=== PATIENT | female | born 1955 | race African-American/Black ===

== ENCOUNTER 2021-09-08 21:35 | Inpatient (IN) | payer MEDICAID, OTHER ==
[~2021-09-08] VITALS: Ht 170.2 cm; Wt 69.1 kg
[2021-09-08 23:24] LABS: Mean Corpuscular Volume 80.7 fL (80.0-100.0)
[2021-09-08 23:26] LABS: Albumin 1.4 g/dL (3.4-5.0); Anion Gap 10 (5-15); Blood Urea Nitrogen 13 mg/dL (7-18); Calcium 8.4 mg/dL (8.5-10.1); Carbon Dioxide 24 mmol/L (21-32); Chloride 92 mmol/L (98-107); Glucose 233 mg/dL (74-106); Hemoglobin 9.5 g/dL (12.2-16.2); Magnesium 1.9 mg/dL (1.6-2.6); Mean Corpuscular Hemoglobin 26.4 pg (28.0-32.0); Mean Corpuscular Hgb Conc. 32.8 g/dL (32.0-36.0); Potassium 3.7 mmol/L (3.5-5.1); Red Blood Cells 3.59 10^6/uL (4.0-5.20); Sodium 126 mmol/L (136-145); White Blood Cell 18.4 10^3/uL (4.4-10.8)
[2021-09-08 23:28] LABS: Red Cell Distribution Width 20.6 % (11.8-14.3)
[2021-09-08 23:29] LABS: Basophils % (manual) 0 (0.0-2.0); Blast Cells 0; Eosinophils % (manual) 0 (0-7); Metamyelocytes % 0; Myelocytes % 0; Promyelocytes % 0; Reactive Lymphocytes 0
[2021-09-08 23:35] LABS: Alanine Aminotransferase 33 U/L (13-56); Alkaline Phosphatase 487 U/L (45-117); Aspartate Aminotransferase 80 U/L (15-37); BUN/Creatinine Ratio 19.7; Bilirubin, Total 8.3 mg/dL (0.2-1.0); Creatine Kinase IFCC 47 U/L (26-192); GFR African American 116 mL/min; GFR Non-African American 96 mL/min; Total Protein 8.3 g/dL (6.4-8.2)
[2021-09-08 23:40] LABS: CRP High Sensitivity > 19 mg/dL (< 0.3)
[2021-09-09 00:08] LABS: Band Neutrophils % (manual) 4; Lymphocytes % (manual) 7 (10.0-50.0); Monocytes % (manual) 8 (0-12)
[2021-09-09] MEDS ORDERED: SODIUM CHLORIDE 0.9% 1,000 ML IV ONE (00:15)
[2021-09-09] MEDS ORDERED: PIPERACILLIN-TAZOB 3.375GM 100 ML IV ONE (00:15)
[2021-09-09] MEDS ORDERED: MORPHINE SULFATE INJ 2 MG/ml SYRG IV PRN ×2 (01:00→13:45)
[2021-09-09] MEDS ORDERED: DOCUSATE SOD 100 MG CAP PO PRN (01:00)
[2021-09-09] MEDS ORDERED: LORazepam 0.5 MG TAB PO PRN (01:00)
[2021-09-09] MEDS ORDERED: DEXTROSE (50%) 50ML SYRG IV PRN (01:00)
[2021-09-09] MEDS ORDERED: TEMAZEPAM 15 MG CAP PO PRN (01:00)
[2021-09-09] MEDS ORDERED: ACETAMINOPHEN 325 MG TAB PO PRN (01:00)
[2021-09-09] MEDS ORDERED: ONDANSETRON HCL 4 MG/2 ML VIAL IV PRN (01:00)
[2021-09-09 01:53] LABS: Triglycerides 250 mg/dL (< 150)
[2021-09-09 01:57] LABS: HDL Cholesterol 9 mg/dL (40-59); LDL Cholesterol 265 mg/dL (< 100)
[2021-09-09 02:18] LABS: Cholesterol 288 mg/dL (< 200)
[2021-09-09] MEDS: SODIUM CHLORIDE 0.9% 1,000 ML IV SCH ×2 (03:11→17:40)
[2021-09-09] MEDS: ACCU-CHEK COMFORT CURVE STRIP VI SCH ×6 (04:14→23:57)
[2021-09-09] MEDS: InsuLIN REG 1unit/0.01ml Soln (100units/ml) SC SCH ×6 (04:14→23:57)
[2021-09-09] MEDS: HYDROcodone-ACET 5/325MG TAB PO PRN ×2 (04:15→21:38)
[2021-09-09 04:30] LABS: Urine Bacteria FEW /hpf (None Seen); Urine Blood Negative /uL (Negative); Urine Mucus FEW (None Seen); Urine Specific Gravity 1.018 (1.001-1.035); Urine WBC 20 /hpf (0 - 5)
[2021-09-09] MEDS: PIPERACILLIN-TAZOB 3.375GM 100 ML IV SCH ×3 (06:14→21:31)
[2021-09-09 10:20] LABS: Potassium 3.8 mmol/L (3.5-5.1)
[2021-09-09 10:28] LABS: Albumin 1.3 g/dL (3.4-5.0); BUN/Creatinine Ratio 15.9; Bilirubin, Total 8.5 mg/dL (0.2-1.0); Total Protein 8.2 g/dL (6.4-8.2)
[2021-09-09 10:50] LABS: Hematocrit 28.6 % (36.0-46.0); Hemoglobin 8.9 g/dL (12.2-16.2); Mean Corpuscular Hgb Conc. 31.2 g/dL (32.0-36.0); Mean Corpuscular Volume 83.2 fL (80.0-100.0); Red Blood Cells 3.44 10^6/uL (4.0-5.20); White Blood Cell 15.1 10^3/uL (4.4-10.8)
[2021-09-09 11:22] LABS: Basophils % (manual) 0 (0.0-2.0); Blast Cells 0; Eosinophils % (manual) 0 (0-7); Metamyelocytes % 0; Myelocytes % 0; Promyelocytes % 0; Reactive Lymphocytes 0
[2021-09-09 13:14] VITALS: BP 111/79
[2021-09-09 13:34] LABS: Band Neutrophils % (manual) 1; Lymphocytes % (manual) 7 (10.0-50.0); Monocytes % (manual) 18 (0-12)
[2021-09-09 15:40] LABS: HDL Cholesterol 9 mg/dL (40-59); LDL Cholesterol 278 mg/dL (< 100); Triglycerides 259 mg/dL (< 150)
[2021-09-09 16:00] VITALS: BP 111/69
[2021-09-09 16:39] LABS: Cholesterol 254 mg/dL (< 200)
[2021-09-09] MEDS: FAMOTIDINE 20 MG TAB PO SCH (21:31)
[2021-09-09] MEDS: SENNA 8.6 MG TAB PO SCH (21:31)
[2021-09-09 22:00] VITALS: BP 115/77
[2021-09-10] MEDS: HYDROcodone-ACET 5/325MG TAB PO PRN ×4 (02:51→21:43)
[2021-09-10] MEDS: ACCU-CHEK COMFORT CURVE STRIP VI SCH ×5 (04:25→21:00)
[2021-09-10] MEDS: InsuLIN REG 1unit/0.01ml Soln (100units/ml) SC SCH ×5 (04:28→21:26)
[2021-09-10 05:05] VITALS: BP 96/56
[2021-09-10] MEDS: PIPERACILLIN-TAZOB 3.375GM 100 ML IV SCH ×3 (05:38→21:35)
[2021-09-10 07:10] LABS: Hemoglobin 8.3 g/dL (12.2-16.2)
[2021-09-10 07:12] LABS: Hematocrit 25.6 % (36.0-46.0); Mean Corpuscular Hemoglobin 26.3 pg (28.0-32.0); Mean Corpuscular Hgb Conc. 32.6 g/dL (32.0-36.0); Mean Corpuscular Volume 80.7 fL (80.0-100.0); Red Blood Cells 3.17 10^6/uL (4.0-5.20); White Blood Cell 15.3 10^3/uL (4.4-10.8)
[2021-09-10 07:21] LABS: Albumin 1.2 g/dL (3.4-5.0); Calcium 7.7 mg/dL (8.5-10.1); Potassium 3.1 mmol/L (3.5-5.1)
[2021-09-10 07:27] LABS: Bilirubin, Total 7.6 mg/dL (0.2-1.0); Total Protein 7.3 g/dL (6.4-8.2)
[2021-09-10 07:46] LABS: Red Cell Distribution Width 20.8 % (11.8-14.3)
[2021-09-10 07:47] LABS: Band Neutrophils % (manual) 0; Basophils % (manual) 0 (0.0-2.0); Blast Cells 0; Eosinophils % (manual) 0 (0-7); Metamyelocytes % 0; Myelocytes % 0; Promyelocytes % 0; Reactive Lymphocytes 0
[2021-09-10 08:00] VITALS: BP 113/72
[2021-09-10 08:19] LABS: Lymphocytes % (manual) 6 (10.0-50.0); Monocytes % (manual) 9 (0-12)
[2021-09-10 09:00] VITALS: BP 113/72
[2021-09-10] MEDS: FAMOTIDINE 20 MG TAB PO SCH (09:09)
[2021-09-10] MEDS: SODIUM CHLORIDE 0.9% 1,000 ML IV SCH (09:10)
[2021-09-10] MEDS ORDERED: ENOXAPARIN SOD 40 MG/0.4 ML SYRINGE SC SCH (10:00)
[2021-09-10] MEDS ORDERED: PANTOPRAZOLE 40 MG/10 ML VIAL INJ IV ONE (11:00)
[2021-09-10] MEDS ORDERED: POTASSIUM EFFERVESENT TAB 25 MEQ GT ONE (11:00)
[2021-09-10 13:00] VITALS: BP 109/73
[2021-09-10 17:00] VITALS: BP 129/69
[2021-09-10] MEDS: PANTOPRAZOLE 40 MG/10 ML VIAL INJ IV SCH (21:34)
[2021-09-10] MEDS: SENNA 8.6 MG TAB PO SCH (21:35)
[2021-09-10 22:19] VITALS: BP 94/56
[2021-09-10 23:45] LABS: Urine Bacteria NONE SEEN /hpf (None Seen); Urine Blood Negative /uL (Negative); Urine Specific Gravity 1.011 (1.001-1.035); Urine WBC 6 /hpf (0 - 5)
[2021-09-11] MEDS: ACCU-CHEK COMFORT CURVE STRIP VI SCH ×7 (00:10→23:51)
[2021-09-11] MEDS: InsuLIN REG 1unit/0.01ml Soln (100units/ml) SC SCH ×7 (00:17→23:53)
[2021-09-11] MEDS: HYDROcodone-ACET 5/325MG TAB PO PRN ×3 (04:57→21:11)
[2021-09-11] MEDS: PIPERACILLIN-TAZOB 3.375GM 100 ML IV SCH ×3 (05:35→21:11)
[2021-09-11 06:10] LABS: Calcium 8.4 mg/dL (8.5-10.1); Potassium 4.2 mmol/L (3.5-5.1)
[2021-09-11 06:11] LABS: Mean Corpuscular Hgb Conc. 33.1 g/dL (32.0-36.0)
[2021-09-11 06:13] LABS: Hematocrit 26.1 % (36.0-46.0); Hemoglobin 8.6 g/dL (12.2-16.2); Mean Corpuscular Hemoglobin 26.5 pg (28.0-32.0); Mean Corpuscular Volume 80.1 fL (80.0-100.0); Red Blood Cells 3.26 10^6/uL (4.0-5.20); White Blood Cell 15.6 10^3/uL (4.4-10.8)
[2021-09-11 06:14] LABS: Albumin 1.3 g/dL (3.4-5.0); BUN/Creatinine Ratio 8.5
[2021-09-11 06:17] LABS: Bilirubin, Total 8.4 mg/dL (0.2-1.0); Total Protein 7.7 g/dL (6.4-8.2)
[2021-09-11 06:18] LABS: Red Cell Distribution Width 20.7 % (11.8-14.3)
[2021-09-11 06:21] LABS: Band Neutrophils % (manual) 0; Blast Cells 0; Metamyelocytes % 0; Promyelocytes % 0; Reactive Lymphocytes 0
[2021-09-11 09:00] VITALS: BP 103/61
[2021-09-11] MEDS ORDERED: GADOTERATE MEG 7.5 MMOL/15ml INJ (0.5MMOL/ml) IV ONE (11:50)
[2021-09-11] MEDS: PANTOPRAZOLE 40 MG/10 ML VIAL INJ IV SCH ×2 (11:51→21:11)
[2021-09-11 17:16] VITALS: BP 100/62
[2021-09-11] MEDS: SENNA 8.6 MG TAB PO SCH (21:12)
[2021-09-11 22:00] VITALS: BP 101/62
[2021-09-12] MEDS: InsuLIN REG 1unit/0.01ml Soln (100units/ml) SC SCH ×4 (04:00→15:29)
[2021-09-12] MEDS: ACCU-CHEK COMFORT CURVE STRIP VI SCH ×3 (04:01→12:00)
[2021-09-12] MEDS: HYDROcodone-ACET 5/325MG TAB PO PRN (04:21)
[2021-09-12 05:00] VITALS: BP 115/64
[2021-09-12] MEDS: PIPERACILLIN-TAZOB 3.375GM 100 ML IV SCH ×2 (06:08→14:00)
[2021-09-12 06:39] LABS: Hematocrit 24.9 % (36.0-46.0); Hemoglobin 8.2 g/dL (12.2-16.2); Mean Corpuscular Hemoglobin 26.4 pg (28.0-32.0); Mean Corpuscular Hgb Conc. 32.7 g/dL (32.0-36.0); Mean Corpuscular Volume 80.6 fL (80.0-100.0); Red Blood Cells 3.09 10^6/uL (4.0-5.20); White Blood Cell 13.8 10^3/uL (4.4-10.8)
[2021-09-12 06:41] LABS: Red Cell Distribution Width 20.7 % (11.8-14.3)
[2021-09-12 06:42] LABS: Band Neutrophils % (manual) 0; Basophils % (manual) 0 (0.0-2.0); Blast Cells 0; Metamyelocytes % 0; Myelocytes % 0; Promyelocytes % 0; Reactive Lymphocytes 0
[2021-09-12 06:53] LABS: Calcium 8.3 mg/dL (8.5-10.1); Potassium 3.6 mmol/L (3.5-5.1)
[2021-09-12 06:56] LABS: BUN/Creatinine Ratio 11.1
[2021-09-12 08:26] LABS: Eosinophils % (manual) 1 (0-7); Lymphocytes % (manual) 6 (10.0-50.0); Monocytes % (manual) 9 (0-12)
[2021-09-12 09:00] VITALS: BP_SYST 104; BP_SYST 118; BP_DIAS 67; BP_DIAS 71
[2021-09-12] MEDS ORDERED: HYDR-4902 PO (09:49)
[2021-09-12] MEDS ORDERED: AMOX500T86 PO (09:49)
[2021-09-12] MEDS ORDERED: PANT40TA2 PO (09:49)
[2021-09-12] MEDS ORDERED: OXY5T GT (09:51)
[2021-09-12 12:28] VITALS: BP 104/67
[2021-09-12 13:00] VITALS: BP 114/71
[2021-09-12] MEDS: PANTOPRAZOLE 40 MG/10 ML VIAL INJ IV SCH (15:06)
== END 2021-09-12 17:10 | disposition home or self-care (01) | DRG 720 ==
LOC: EDBD 21:35 → ER 21:35 → EAST 23:22 → OVERFLOW 09-09 00:49 → EAST 09-09 12:58
PROVIDERS: ADMIT Hospitalist; ATTEND Internal Medicine Pulmonary Disease
DX: A41.9 Sepsis, unspecified organism (principal); E46 Unspecified protein-calorie malnutrition; E87.1 Hypo-osmolality and hyponatremia; K92.2 Gastrointestinal hemorrhage, unspecified; D64.9 Anemia, unspecified; E11.65 Type 2 diabetes mellitus with hyperglycemia; K76.9 Liver disease, unspecified; K52.9 Noninfective gastroenteritis and colitis, unspecified; M54.9 Dorsalgia, unspecified; Z20.822 Contact with and (suspected) exposure to COVID-19; Z92.21 Personal history of antineoplastic chemotherapy; Z85.05 Personal history of malignant neoplasm of liver; Z85.038 Personal history of other malignant neoplasm of large intestine; Z68.23 Body mass index [BMI] 23.0-23.9, adult; N39.0 Urinary tract infection, site not specified
CPT/HCPCS: 36415; 70450; 74176; 74183; 80048; 80053; 80061; 81001; 82140; 82550; 82962; 83036; 83605; 83735; 83880; 84443; 84484; 85007; 85027; 86141; 87040; 87077; 87086; 87186; 93005; 96365; 96366; 96375; 99291; C9113; G0378; J1815; J2405; J2543

== ENCOUNTER 2021-09-28 14:48 | Inpatient (IN) | payer MEDICAID ==
[~2021-09-28] VITALS: Ht 162.6 cm; Wt 68.2 kg
[~2021-09-28 14:48] MED LIST: AMOX500T86 PO; OXY5T GT; PANT40TA2 PO
[2021-09-28] MEDS ORDERED: SODIUM CHLORIDE 0.9% 1,000 ML IV ONE (15:00)
[2021-09-28 15:34] LABS: Hemoglobin 9.2 g/dL (12.2-16.2); Mean Corpuscular Hemoglobin 25.6 pg (28.0-32.0); Mean Corpuscular Hgb Conc. 31.8 g/dL (32.0-36.0); Mean Corpuscular Volume 80.4 fL (80.0-100.0); Red Blood Cells 3.61 10^6/uL (4.0-5.20); White Blood Cell 25.8 10^3/uL (4.4-10.8)
[2021-09-28 15:37] LABS: Red Cell Distribution Width 25.3 % (11.8-14.3)
[2021-09-28 15:38] LABS: Basophils % (manual) 0 (0.0-2.0); Blast Cells 0; Eosinophils % (manual) 0 (0-7); Metamyelocytes % 0; Monocytes % (manual) 0 (0-12); Myelocytes % 0; Promyelocytes % 0; Reactive Lymphocytes 0
[2021-09-28 15:53] LABS: Partial Thromboplastin Time 55.6 sec (24.6-33.4)
[2021-09-28 15:55] LABS: Albumin 1.2 g/dL (3.4-5.0); BUN/Creatinine Ratio 29.6; Calcium 7.4 mg/dL (8.5-10.1); Magnesium 2.5 mg/dL (1.6-2.6); Potassium 3.5 mmol/L (3.5-5.1)
[2021-09-28 15:57] LABS: Bilirubin, Total 11.8 mg/dL (0.2-1.0); Lactic Acid w/Reflex 5.2 mmol/L (0.4-2.0); Total Protein 7.3 g/dL (6.4-8.2)
[2021-09-28 16:06] LABS: INR 7.65 (0.9-1.15)
[2021-09-28 16:28] LABS: Band Neutrophils % (manual) 13; Lymphocytes % (manual) 3 (10.0-50.0)
[2021-09-28] MEDS ORDERED: phytonadione 10 MG in SODIUM CHL 0.9% 50 ML IV ONE ×4 (17:30)
[2021-09-28] MEDS ORDERED: PANTOPRAZOLE 40mg/50ML NS AE 50 ML IV ONE (17:30)
[2021-09-28] MEDS ORDERED: NITROGLYCERIN 0.4 MG SL TAB SL PRN (19:00)
[2021-09-28] MEDS ORDERED: phytonadione 10 MG in SODIUM CHL 0.9% 50 ML IV PRN (19:00)
[2021-09-28] MEDS ORDERED: ACETAMINOPHEN 325 MG TAB PO PRN (19:00)
[2021-09-28] MEDS ORDERED: ONDANSETRON HCL 4 MG/2 ML VIAL IV PRN (19:00)
[2021-09-28] MEDS ORDERED: DOCUSATE SOD 100 MG CAP PO PRN (19:00)
[2021-09-28] MEDS: CEFEPIME 2 GM in SODIUM CHL 0.9% 50 ML IV SCH (19:00)
[2021-09-28] MEDS ORDERED: VANCOMYCIN PER PHARMACY 0 MG IV SCH (19:00)
[2021-09-28] MEDS ORDERED: HYDROcodone-ACET 5/325MG TAB PO PRN (19:00)
[2021-09-28] MEDS ORDERED: MORPHINE SULFATE INJ 2 MG/ml SYRG IV PRN (19:00)
[2021-09-28 21:15] LABS: INR 3.91 (0.9-1.15)
[2021-09-28] MEDS ORDERED: VANCOMYCIN 1GM/250ML 250 ML IV SCH (22:00)
[2021-09-28] MEDS: SODIUM CHLOR 0.9% PF (SALINE LOCK) 10ML VIAL/SYR IV SCH (22:00)
[2021-09-28 22:43] LABS: BUN/Creatinine Ratio 33.3; Calcium 7.4 mg/dL (8.5-10.1); Potassium 3.1 mmol/L (3.5-5.1)
[2021-09-28] MEDS ORDERED: phytonadione 1 ML ONE (23:23)
[2021-09-29 00:10] VITALS: BP 100/60
[2021-09-29 01:32] LABS: INR 2.07 (0.9-1.15)
[2021-09-29] MEDS: SODIUM CHLOR 0.9% PF (SALINE LOCK) 10ML VIAL/SYR IV SCH ×3 (04:55→22:20)
[2021-09-29 04:58] VITALS: BP 101/62
[2021-09-29] MEDS: CEFEPIME 2 GM in SODIUM CHL 0.9% 50 ML IV SCH ×2 (06:29→19:01)
[2021-09-29 07:46] LABS: INR 1.57 (0.9-1.15)
[2021-09-29 09:00] VITALS: BP 103/62
[2021-09-29 14:26] LABS: INR 1.34 (0.9-1.15)
[2021-09-29] MEDS ORDERED: POTASSIUM CHL 20 Meq TABLET PO ONE (14:30)
[2021-09-29 17:00] VITALS: BP 102/61
[2021-09-29] MEDS ORDERED: MORP30TA5 PO (19:01)
[2021-09-29] MEDS ORDERED: MORP1TAB14 PO (19:01)
[2021-09-29 19:28] LABS: INR 1.28 (0.9-1.15)
[2021-09-29] MEDS: HYDROmorphone HCL 2 MG/ML VL/or syr IV PRN (20:21)
[2021-09-29 22:00] VITALS: BP 98/57
[2021-09-29] MEDS: PANTOPRAZOLE 40 MG TAB PO SCH (22:20)
[2021-09-30 01:19] LABS: INR 1.27 (0.9-1.15)
[2021-09-30 05:00] VITALS: BP 105/68
[2021-09-30] MEDS: HYDROmorphone HCL 2 MG/ML VL/or syr IV PRN ×2 (05:10→11:25)
[2021-09-30] MEDS: SODIUM CHLOR 0.9% PF (SALINE LOCK) 10ML VIAL/SYR IV SCH ×3 (06:22→22:44)
[2021-09-30] MEDS: CEFEPIME 2 GM in SODIUM CHL 0.9% 50 ML IV SCH ×2 (06:30→18:35)
[2021-09-30 09:00] VITALS: BP 103/67
[2021-09-30] MEDS: PANTOPRAZOLE 40 MG TAB PO SCH ×2 (10:41→22:44)
[2021-09-30] MEDS: SODIUM CHLORIDE 0.9% 1,000 ML IV SCH ×2 (10:43→22:56)
[2021-09-30 11:07] LABS: Basophils # (auto) 0 10 ^3/uL (0-0.2); Basophils % (auto) 0.2 % (0.0-2.0); Eosinophils # (auto) 0.2 10 ^3/uL (0-0.8); Monocytes # (auto) 1.1 10 ^3/uL (0-1.3)
[2021-09-30 11:09] LABS: Hematocrit 28.7 % (36.0-46.0); Lymphocytes # (auto) 1.9 10 ^3/uL (0.4-5.4); Lymphocytes % (auto) 9.8 % (10.0-50.0); Mean Corpuscular Hemoglobin 25.3 pg (28.0-32.0); Mean Corpuscular Hgb Conc. 31.3 g/dL (32.0-36.0); Mean Corpuscular Volume 80.8 fL (80.0-100.0); Neutrophils # (auto) 15.7 10 ^3/uL (1.6-8.6); Nucleated Red Blood Cells % 0.2 %; Red Blood Cells 3.55 10^6/uL (4.0-5.20); Red Cell Distribution Width 24.4 % (11.8-14.3)
[2021-09-30 11:35] LABS: BUN/Creatinine Ratio 33.8; Calcium 7.7 mg/dL (8.5-10.1)
[2021-09-30 11:41] LABS: Potassium 2.8 mmol/L (3.5-5.1)
[2021-09-30] MEDS: Pro-Stat SF 30ml Vanilla PO SCH ×2 (12:00→17:41)
[2021-09-30] MEDS: Ensure HIGH Protein Chocolate 8oz Bottle PO SCH ×2 (12:00→17:41)
[2021-09-30 13:00] VITALS: BP 87/39
[2021-09-30] MEDS ORDERED: MORPHINE SULF 30 mg ER tab PO SCH (16:15)
[2021-09-30 17:00] VITALS: BP 93/54
[2021-09-30 21:55] VITALS: BP 97/58
[2021-10-01 05:00] VITALS: BP 99/54
[2021-10-01] MEDS: SODIUM CHLORIDE 0.9% 1,000 ML IV SCH ×3 (05:30→19:13)
[2021-10-01] MEDS: MORPHINE SULF 30 mg ER tab PO SCH ×2 (05:52→18:00)
[2021-10-01] MEDS: SODIUM CHLOR 0.9% PF (SALINE LOCK) 10ML VIAL/SYR IV SCH ×3 (05:52→21:33)
[2021-10-01] MEDS: CEFEPIME 2 GM in SODIUM CHL 0.9% 50 ML IV SCH ×2 (06:40→19:13)
[2021-10-01 09:00] VITALS: BP 88/48
[2021-10-01] MEDS ORDERED: POTASSIUM CHL 20 Meq TABLET PO ONE (09:00)
[2021-10-01 10:21] LABS: BUN/Creatinine Ratio 33.3; Calcium 7.6 mg/dL (8.5-10.1); Potassium 3.1 mmol/L (3.5-5.1)
[2021-10-01] MEDS: PANTOPRAZOLE 40 MG TAB PO SCH ×2 (11:29→21:33)
[2021-10-01] MEDS: Pro-Stat SF 30ml Vanilla PO SCH ×3 (11:38→19:13)
[2021-10-01] MEDS: Ensure HIGH Protein Chocolate 8oz Bottle PO SCH ×3 (11:38→19:13)
[2021-10-01 12:05] LABS: Basophils # (auto) 0 10 ^3/uL (0-0.2); Basophils % (auto) 0.2 % (0.0-2.0); Eosinophils # (auto) 0 10 ^3/uL (0-0.8); Eosinophils % (auto) 0.1 % (0.0-7.0); Hematocrit 26.4 % (36.0-46.0); Hemoglobin 8.4 g/dL (12.2-16.2); Lymphocytes # (auto) 1.9 10 ^3/uL (0.4-5.4); Mean Corpuscular Hemoglobin 25.8 pg (28.0-32.0); Mean Corpuscular Hgb Conc. 31.8 g/dL (32.0-36.0); Mean Corpuscular Volume 81.1 fL (80.0-100.0); Monocytes % (auto) 5.3 % (0.0-12.0); Neutrophils # (auto) 15.7 10 ^3/uL (1.6-8.6); Neutrophils % (auto) 84.4 % (37.0-80.0); Nucleated Red Blood Cells % 0.3 %; Red Blood Cells 3.26 10^6/uL (4.0-5.20); White Blood Cell 18.6 10^3/uL (4.4-10.8)
[2021-10-01 12:07] LABS: Red Cell Distribution Width 24.5 % (11.8-14.3)
[2021-10-01 17:30] VITALS: BP 94/53
[2021-10-01 22:00] VITALS: BP 97/61
[2021-10-02 04:47] VITALS: BP 95/51
[2021-10-02] MEDS: SODIUM CHLOR 0.9% PF (SALINE LOCK) 10ML VIAL/SYR IV SCH ×3 (05:57→22:00)
[2021-10-02] MEDS: MORPHINE SULF 30 mg ER tab PO SCH ×2 (05:57→19:03)
[2021-10-02] MEDS: CEFEPIME 2 GM in SODIUM CHL 0.9% 50 ML IV SCH ×2 (06:39→19:10)
[2021-10-02 09:00] VITALS: BP 83/47
[2021-10-02] MEDS ORDERED: DEXTROSE (50%) 50ML SYRG IV PRN (11:45)
[2021-10-02] MEDS: Pro-Stat SF 30ml Vanilla PO SCH ×3 (13:32→19:03)
[2021-10-02] MEDS: Ensure HIGH Protein Chocolate 8oz Bottle PO SCH ×3 (13:32→19:47)
[2021-10-02] MEDS: PANTOPRAZOLE 40 MG TAB PO SCH ×2 (13:32→22:00)
[2021-10-02] MEDS: SODIUM CHLORIDE 0.9% 1,000 ML IV SCH (13:37)
[2021-10-02] MEDS: ACCU-CHEK COMFORT CURVE STRIP VI SCH ×2 (13:37→19:04)
[2021-10-02] MEDS: InsuLIN REG 1unit/0.01ml Soln (100units/ml) SC SCH ×2 (16:20→18:00)
[2021-10-02] MEDS ORDERED: GLIP5TAB12 PO (16:33)
[2021-10-02 17:00] VITALS: BP 100/60
[2021-10-02] MEDS: DOCUSATE SOD 100 MG CAP PO SCH (22:00)
[2021-10-02 22:01] VITALS: BP 78/38
[2021-10-02 22:26] VITALS: BP 88/49
[2021-10-03] MEDS: ACCU-CHEK COMFORT CURVE STRIP VI SCH ×5 (00:16→23:08)
[2021-10-03 04:43] VITALS: BP 84/46
[2021-10-03] MEDS: SODIUM CHLOR 0.9% PF (SALINE LOCK) 10ML VIAL/SYR IV SCH ×3 (05:06→21:03)
[2021-10-03 05:11] VITALS: BP 99/59
[2021-10-03] MEDS: MORPHINE SULF 30 mg ER tab PO SCH ×2 (05:16→18:00)
[2021-10-03 05:28] LABS: Basophils # (auto) 0 10 ^3/uL (0-0.2); Basophils % (auto) 0.1 % (0.0-2.0); Eosinophils # (auto) 0 10 ^3/uL (0-0.8); Hemoglobin 8.2 g/dL (12.2-16.2); Monocytes # (auto) 0.9 10 ^3/uL (0-1.3); Monocytes % (auto) 4.5 % (0.0-12.0); Neutrophils # (auto) 18.5 10 ^3/uL (1.6-8.6)
[2021-10-03 05:30] LABS: Eosinophils % (auto) 0.1 % (0.0-7.0); Hematocrit 25.6 % (36.0-46.0); Lymphocytes # (auto) 0.9 10 ^3/uL (0.4-5.4); Lymphocytes % (auto) 4.3 % (10.0-50.0); Mean Corpuscular Hemoglobin 26.5 pg (28.0-32.0); Mean Corpuscular Hgb Conc. 32.1 g/dL (32.0-36.0); Mean Corpuscular Volume 82.5 fL (80.0-100.0); Nucleated Red Blood Cells % 0.5 %; White Blood Cell 20.3 10^3/uL (4.4-10.8)
[2021-10-03 05:36] LABS: Red Cell Distribution Width 24.7 % (11.8-14.3)
[2021-10-03 05:49] LABS: Potassium 4.2 mmol/L (3.5-5.1)
[2021-10-03 05:59] LABS: Bilirubin, Total 11.1 mg/dL (0.2-1.0); Calcium 7.8 mg/dL (8.5-10.1); Total Protein 6.6 g/dL (6.4-8.2)
[2021-10-03] MEDS: CEFEPIME 2 GM in SODIUM CHL 0.9% 50 ML IV SCH ×2 (06:01→18:45)
[2021-10-03] MEDS: SODIUM CHLORIDE 0.9% 1,000 ML IV SCH (06:01)
[2021-10-03] MEDS: InsuLIN REG 1unit/0.01ml Soln (100units/ml) SC SCH ×5 (06:17→23:08)
[2021-10-03] MEDS: Pro-Stat SF 30ml Vanilla PO SCH ×3 (08:00→18:00)
[2021-10-03] MEDS: Ensure HIGH Protein Chocolate 8oz Bottle PO SCH ×3 (08:00→18:00)
[2021-10-03 08:56] VITALS: BP 93/49
[2021-10-03] MEDS: PANTOPRAZOLE 40 MG TAB PO SCH ×2 (10:00→21:04)
[2021-10-03] MEDS: DOCUSATE SOD 100 MG CAP PO SCH ×2 (10:00→21:03)
[2021-10-03 13:00] VITALS: BP 83/44
[2021-10-03] MEDS: D5W/SOD CHL 0.45% 1,000 ML IV SCH ×2 (13:43→23:19)
[2021-10-03 16:41] VITALS: BP 87/48
[2021-10-03 21:42] VITALS: BP 91/50
[2021-10-04] MEDS: D5W/SOD CHL 0.45% 1,000 ML IV SCH (02:34)
[2021-10-04] MEDS: SODIUM CHLOR 0.9% PF (SALINE LOCK) 10ML VIAL/SYR IV SCH (04:41)
[2021-10-04 05:00] VITALS: BP 86/50
[2021-10-04] MEDS: MORPHINE SULF 30 mg ER tab PO SCH (05:00)
[2021-10-04] MEDS: InsuLIN REG 1unit/0.01ml Soln (100units/ml) SC SCH (05:35)
[2021-10-04] MEDS: ACCU-CHEK COMFORT CURVE STRIP VI SCH (05:45)
[2021-10-04] MEDS: CEFEPIME 2 GM in SODIUM CHL 0.9% 50 ML IV SCH (06:05)
[2021-10-04 08:15] VITALS: BP 82/51
[2021-10-04 09:16] VITALS: BP 82/51
== END 2021-10-04 09:30 | disposition hospice, home (50) | DRG 720 ==
LOC: EDBD 14:48 → ER 14:48 → TELE 19:00 → TELE-EAST 23:19
PROVIDERS: ADMIT Internal Medicine; ATTEND Internal Medicine Nephrology
DX: A41.50 Gram-negative sepsis, unspecified (principal); E43 Unspecified severe protein-calorie malnutrition; N17.9 Acute kidney failure, unspecified; K72.90 Hepatic failure, unspecified without coma; E87.0 Hyperosmolality and hypernatremia; D69.6 Thrombocytopenia, unspecified; C18.9 Malignant neoplasm of colon, unspecified; C78.7 Secondary malignant neoplasm of liver and intrahepatic bile duct; D64.9 Anemia, unspecified; E86.0 Dehydration; K80.20 Calculus of gallbladder without cholecystitis without obstruction; R79.1 Abnormal coagulation profile; I10 Essential (primary) hypertension; E87.6 Hypokalemia; R65.20 Severe sepsis without septic shock; E11.9 Type 2 diabetes mellitus without complications; E78.5 Hyperlipidemia, unspecified; Z20.822 Contact with and (suspected) exposure to COVID-19; R79.89 Other specified abnormal findings of blood chemistry; Z66 Do not resuscitate; K92.1 Melena; R18.8 Other ascites; Z51.5 Encounter for palliative care; Z85.038 Personal history of other malignant neoplasm of large intestine; Z68.24 Body mass index [BMI] 24.0-24.9, adult
CPT/HCPCS: 36415; 71045; 74176; 76705; 80048; 80053; 80202; 82105; 82140; 82378; 82962; 83605; 83735; 84484; 85007; 85025; 85027; 85610; 85730; 86850; 86900; 86901; 87040; 87077; 87186; 93005; 96361; 96365; 96368; 99291; G0378; J1815; J3430